=== PATIENT | female | born 1960 | race African-American/Black ===

== ENCOUNTER 2019-05-14 20:09 | Emergency (ER) | payer OTHER ==
[~2019-05-14] VITALS: Ht 160 cm; Wt 108.9 kg
[2019-05-14] MEDS ORDERED: LISINOPRIL5 MG ORAL (20:20)
[2019-05-14] MEDS ORDERED: METFORMIN HCL1000 M1 ORAL (20:20)
[2019-05-14] MEDS ORDERED: ATORVASTATIN CA40 MG ORAL (20:20)
[2019-05-14 20:21] VITALS: BP 140/94
--- NOTE | 2019-05-14 20:21 | NUR ---
ED Nurse Note: Patient walked in to ed c/o chest tightness radiating to back x 4 days. Reports pain onset when eating. Pt has history of PE. Stated that she had multiple flights this week. No SOB. No BLE edema noted. Afebrile. VSS.
--- NOTE | 2019-05-14 20:35 | NUR ---
ED Nurse Note: ERMD at bedside.
[2019-05-14] MEDS ORDERED: Omnipaue 350mg/ml 100ml vial INJ PRN (20:45)
--- NOTE | 2019-05-14 20:47 | Emergency Room Report ---
History of Present Illness General Chief Complaint: Chest Pain Source: Patient Present Illness HPI Disclaimer: Please note that this report is being documented using [employer] technology. This can lead to erroneous entry secondary to incorrect interpretation by the dictating instrument. 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 Symptoms began 4 days ago. The patient reports an upper respiratory infection approximately 1 week ago and then multiple plane flights between [place], [place] and back home. 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 Genetic testing found no hypercoagulable genetic conditions. She denies any lower extremity pain, cramping or enlargement. No recent immobilization, no hormone use, no history of cancer. She quit smoking 2 weeks ago. Complaining of chest tightness but not pain. Denies significant shortness of breath. Pain is somewhat exacerbated by eating and sometimes relieved by rest. Is located mostly in the epigastrium in the left upper quadrant. She denies palpitations, cough, sore throat, vomiting or diarrhea PMH: Unprovoked DVT/PE, obesity, diabetes PSH: Reviewed Allergies: Denies Social Hx: Former smoker, quit 2 weeks ago. Denies drug or alcohol use Allergies: Coded Allergies: No Known Allergies (Unverified , 05/14/19) Patient History Now: No Nursing Documentation-PMH Past Medical History: No History, Except For Hx Hypertension: Yes Hx Diabetes: Yes Review of Systems All Other Systems: negative except mentioned in HPI Physical Exam Vital Signs Date Time Temp Pulse Resp B/P (MAP) Pulse Ox O2 Delivery O2 Flow Rate FiO2 05/14/19 20:16 98.2 88 14 140/94 (109) 98 Room Air General: Awake and alert, no acute distress HEENT: NC/AT. EOMI. Cardiovascular: RRR. S1 and S2 normal. No murmur appreciated Resp: Normal work of breathing. No cough, wheezing or crackles appreciated Abdomen: Abdomen is soft, nondistended. Tender in the epigastrium and left upper quadrant. No rebound. Negative Hays's. Skin: Intact. No abrasions, laceration or rash over the exposed skin MSK: Normal tone and bulk. Moving all extremities. No obvious deformity. No unilateral cleft tenderness or swelling. Homans sign negative Neuro: Awake and alert. Mentating appropriately. Medical Decision Making Diagnostic Impression: Primary Impression: Abdominal pain Additional Impression: Thyroid nodule ER Course 58-year-old female history of DVT/PE no longer anticoagulated presents for evaluation of abdominal and chest pain. Differential includes was not limited to gastritis, gastroenteritis, cholecystitis, pancreatitis, flash pulmonary edema, pneumonia, bronchitis, pneumothorax, PE, ACS, unstable angina, arrhythmia. EKG performed at triage shows normal sinus rhythm without acute signs of ischemia or significant right heart strain. Will obtain labs including lipase, cardiac enzymes and send the patient for a CTA of the chest given her history and recent risk factors such as long distance travel. Vital signs are otherwise stable though the patient states she had normal vital signs during her last PE/DVT admissions. Laboratory Tests Test 05/14/19 20:47 White Blood Count 9.6 K/UL (4.8-10.8) Red Blood Count 4.83 M/UL (4.20-5.40) Hemoglobin 13.5 G/DL (12.0-16.0) Hematocrit 39.5 % (37.0-47.0) Mean Corpuscular Volume 82 FL (80-99) Mean Corpuscular Hemoglobin 28.0 PG (27.0-31.0) Mean Corpuscular Hemoglobin Concent 34.2 G/DL (32.0-36.0) Red Cell Distribution Width 10.3 % (11.6-14.8) L Platelet Count 309 K/UL (150-450) Mean Platelet Volume 5.4 FL (6.5-10.1) L Neutrophils (%) (Auto) 42.5 % (45.0-75.0) L Lymphocytes (%) (Auto) 42.1 % (20.0-45.0) Monocytes (%) (Auto) 8.9 % (1.0-10.0) Eosinophils (%) (Auto) 2.3 % (0.0-3.0) Basophils (%) (Auto) 4.3 % (0.0-2.0) H Sodium Level 142 MMOL/L (136-145) Potassium Level 3.6 MMOL/L (3.5-5.1) Chloride Level 105 MMOL/L (98-107) Carbon Dioxide Level 29 MMOL/L (21-32) Anion Gap 8 mmol/L (5-15) Blood Urea Nitrogen 14 mg/dL (7-18) Creatinine 0.7 MG/DL (0.55-1.30) Estimate Glomerular Filtration Rate > 60 mL/min (>60) Glucose Level 185 MG/DL (74-106) H Calcium Level 9.7 MG/DL (8.5-10.1) Total Bilirubin 0.3 MG/DL (0.2-1.0) Aspartate Amino Transferase (AST) 22 U/L (15-37) Alanine Aminotransferase (ALT) 39 U/L (12-78) Alkaline Phosphatase 104 U/L (46-116) Troponin I 0.022 ng/mL (0.000-0.056) Pro-B-Type Natriuretic Peptide 24 pg/mL (0-125) Total Protein 7.0 G/DL (6.4-8.2) Albumin 3.5 G/DL (3.4-5.0) Globulin 3.5 g/dL Albumin/Globulin Ratio 1.0 (1.0-2.7) Lipase 267 U/L (73-393) EKG Diagnostic Results EKG Time: 20:43 Rate: normal Rhythm: NSR ST Segments: no acute changes Other Impression Sinus rhythm, normal axis, normal intervals, no ST segment changes. Rhythm Strip Diag. Results Rhythm Strip Time: 20:43 EP Interpretation: yes Rate: 80s Rhythm: NSR, no PVC's, no ectopy CT/MRI/US Diagnostic Results CT/MRI/US Diagnostic Results : Impression Preliminary Findings Only See Final Report For Complete Findings CTA CHEST With Contrast: No comparison Impression: -No PE or other acute abnormality definitively identified. -Soft tissue attenuation around the suprarenal aorta and posterior to the pancreas of uncertain significance. -Recommend oral and IV contrast enhanced CT abdomen and pelvis to further characterize this finding as well as correlation with age appropriate screening exams. -Recommend thyroid ultrasound on an outpatient basis further characterize hypodense nodules. -Degenerative spine findings. Radiologist: Fer Whitten MD Study ready at 21:55 and initial results transmitted at 22:00 Reevaluation Time: 22:06 Last Vital Signs Date Time Temp Pulse Resp B/P (MAP) Pulse Ox O2 Delivery O2 Flow Rate FiO2 05/14/19 20:21 88 14 Room Air 05/14/19 20:21 98.2 140/94 98 Reevaluation Impression Labs including troponin and lipase are within normal limits. EKG is nonischemic. No evidence of pulmonary embolism on CTA of the chest. There is some nonspecific attenuation around the pancreas and kidney as well as questionable thyroid nodules. The patient states she has had thyroid problems in the past and will follow-up as an outpatient. Also follow-up for the nonspecific findings. May be reactive secondary to recent URI symptoms. Vital signs are within normal limits. The patient would like to be discharged home. She will follow-up as an outpatient and copies of her CT report were provided in her discharge paperwork. Discussed reasons to return to the emergency department. She understands and agrees with this treatment plan. Disposition: HOME, SELF-CARE Condition: Stable Hector Jaime MD May 14, 2019 20:47
--- NOTE | 2019-05-14 20:50 | NUR ---
ED Nurse Note: IV line established. blood and urine specimen collected and sent to lab.
[2019-05-14 21:06] LABS: BASOPHILS % (AUTO) 4.3 % (0.0-2.0); EOSINOPHILS % (AUTO) 2.3 % (0.0-3.0); HEMATOCRIT 39.5 % (37.0-47.0); HEMOGLOBIN 13.5 G/DL (12.0-16.0); LYMPHOCYTES % (AUTO) 42.1 % (20.0-45.0); MEAN CORPUSCULAR VOLUME 82 FL (80-99); MONOCYTES % (AUTO) 8.9 % (1.0-10.0); NEUTROPHILS % (AUTO) 42.5 % (45.0-75.0); PLATELET COUNT 309 K/UL (150-450); RED BLOOD COUNT 4.83 M/UL (4.20-5.40); RED CELL DISTRIBUTION WIDTH 10.3 % (11.6-14.8); WHITE BLOOD COUNT 9.6 K/UL (4.8-10.8)
[2019-05-14 21:20] LABS: ANION GAP 8 mmol/L (5-15); BLOOD UREA NITROGEN 14 mg/dL (7-18); CALCIUM 9.7 MG/DL (8.5-10.1); CARBON DIOXIDE 29 MMOL/L (21-32); CHLORIDE 105 MMOL/L (98-107); CREATININE 0.7 MG/DL (0.55-1.30); POTASSIUM 3.6 MMOL/L (3.5-5.1); SODIUM 142 MMOL/L (136-145)
--- NOTE | 2019-05-14 21:25 | NUR ---
ED Nurse Note: Pt taken for CT.
[2019-05-14 21:30] LABS: ALANINE AMINOTRANSFERASE 39 U/L (12-78); ALBUMIN 3.5 G/DL (3.4-5.0); ALKALINE PHOSPHATASE 104 U/L (46-116); ASPARTATE AMINO TRANSFERASE 22 U/L (15-37); BILIRUBIN,TOTAL 0.3 MG/DL (0.2-1.0)
--- NOTE | 2019-05-14 21:39 | NUR ---
ED Nurse Note: Pt came back from CT.
--- NOTE | 2019-05-14 22:01 | Diagnostic Imaging Report ---
ndication: Chest tightness radiating to back for 4 days Technique: IV administration nonionic contrast. Spiral acquisitions obtained from the lung bases to the lung apices. Multiplanar and 3-D reconstructions were generated. Total dose length product 1209 mGycm. CTDIvol(s) 43, 19, 29 mGy. Dose reduction achieved using automated exposure control Comparison: none Findings: No intraluminal filling defects or other findings to suggest acute pulmonary embolus demonstrated. Normal caliber pulmonary arteries. No evidence of right ventricular dilatation. The heart size is normal, does demonstrate possible thickening of the left ventricular wall. There is no evidence of thoracic aortic aneurysm or dissection. There is variant branching anatomy of the great neck vessels, with common origin of the right brachiocephalic and left common carotid artery and separate origin of the left vertebral artery off of the aortic arch. Normal caliber of the great neck vessels. Normal caliber of the visualized visceral vessels. The lungs demonstrate very faint subtle areas of groundglass opacity bilaterally, probably just representing areas of mild atelectasis. Otherwise, no infiltrates, effusions, masses, or nodules. No pericardial effusion. No mediastinal or hilar mass or adenopathy. No axillary or chest wall mass or adenopathy. The left thyroid lobe demonstrates a 2.2 cm hypoattenuating nodule. Other smaller nodules are seen in both thyroid lobes. Included upper abdominal anatomy demonstrates abnormal abundant soft tissue adjacent to the proximal abdominal aorta, particularly on its left side. Impression: No evidence of acute pulmonary embolus or other acute thoracic vascular pathology Possible left ventricular muscular hypertrophy Abnormal tissue adjacent to the proximal abdominal aorta, could represent adenopathy or inflammatory tissue. Recommend contrast CT for better characterization No definite acute pulmonary process Multiple thyroid nodules, including a 2.2 cm left lobe nodule. Recommend further evaluation with thyroid sonography This agrees with the preliminary interpretation provided overnight by [employer] teleradiology service. The CT scanner at [facility] is accredited by the [employer] and the scans are performed using protocols designed to limit radiation exposure to as low as reasonably achievable to attain images of sufficient resolution adequate for diagnostic evaluation.
[2019-05-14 22:38] VITALS: BP 135/79
--- NOTE | 2019-05-14 22:38 | NUR ---
ED Nurse Note: Pt cleared by ERMD for discharge. DC instructions/prescription was given and explained to pt and verbalized understanding of teachings. All medical deviecs such as ID band and IV line removed. Pt is AAO x4, ambulatory and left with all personal belongings. Accompanied by family members.
== END 2019-05-14 22:38 | disposition home or self-care (01) ==
LOC: EMR 20:43
DX: R10.9 Unspecified abdominal pain (principal); E04.1 Nontoxic single thyroid nodule; I10 Essential (primary) hypertension; E11.9 Type 2 diabetes mellitus without complications; Z87.891 Personal history of nicotine dependence; Z86.711 Personal history of pulmonary embolism; Z86.718 Personal history of other venous thrombosis and embolism
CPT/HCPCS: 36415; 71275; 80053; 83690; 83880; 84484; 85025; 93005; 99284; Q9967